=== PATIENT | female | born 1940 | race American Indian/Alaskan Native ===

== ENCOUNTER 2016-11-27 05:47 | Day surgery (SDC) | payer MEDICARE, OTHER ==
[2016-11-27] MEDS ORDERED: NACL 0.9% 1000 ML 1,000 ML IV SCH (06:00)
[2016-11-27] MEDS ORDERED: ANCEF/STERILE WATER 2 GM/20 ML 2 GM/20 ML SYRINGE IV NR (06:00)
[2016-11-27] MEDS ORDERED: NACL BACTERIOSTATIC INFILTRATI ONE (06:26)
[2016-11-27 07:08] LABS: Basophils % (Auto) 0.5 % (0.0-1.8); Eosinophils % (Auto) 2.1 % (0.0-4.3); Hematocrit 34.6 % (30.3-42.9); Hemoglobin 11.6 gm/dl (10.1-14.3); Mean Corpuscular HGB Conc 34 % (30-34); Mean Corpuscular Hemoglobin 34 pg (28-32); Mean Corpuscular Volume 100 fl (79-97); Platelet Count 144 K/mm3 (140-440); Red Blood Count 3.45 M/mm3 (3.65-5.03); Red Cell Distribution Width 14.5 % (13.2-15.2); White Blood Count 8.4 K/mm3 (4.5-11.0)
[2016-11-27] MEDS ORDERED: HEPARIN 10,000 UNITS/10 ML ONE (07:20)
[2016-11-27 07:21] LABS: BUN/Creatinine Ratio 6.29; Calcium 8.5 mg/dL (8.4-10.2); Chloride 94.6 mmol/L (98-107); Potassium 4.7 mmol/L (3.6-5.0)
[2016-11-27] MEDS ORDERED: NACL 0.9% 250ML 500 ML ONE (07:21)
[2016-11-27] MEDS ORDERED: XYLOCAINE 1% 20 mL ONE (07:22)
[2016-11-27] MEDS ORDERED: SODIUM BICARBONATE ONE (07:23)
[2016-11-27] MEDS ORDERED: THROMBIN (BOVINE) TP ONE ×2 (07:24→10:00)
[2016-11-27] MEDS ORDERED: GELFOAM TP ONE ×2 (07:24→10:00)
[2016-11-27] MEDS ORDERED: MARCAINE 0.5% INFILTRATI ONE (07:25)
--- NOTE | 2016-11-27 07:27 | Anesthesia Day of Surgery ---
Anesthesia Day of Surgery - Day of Surgery Patient Examined: Yes Patient H&P Reviewed: Yes Patient is NPO: Yes Beta Blockers: Yes
--- NOTE | 2016-11-27 07:27 | Anesthesia Consultation ---
Anesthesia Consult and Med Hx Date of service: 11/27/16 - Airway Anesthetic Teeth Evaluation: Good ROM Head & Neck: Adequate Mental/Hyoid Distance: Inadequate Mallampati Class: Class IV Intubation Access Assessment: Difficult - Pulmonary Exam CTA: Yes - Cardiac Exam Cardiac Exam: RRR - Pre-Operative Health Status ASA Pre-Surgery Classification: ASA4 Proposed Anesthetic Plan: General - Pulmonary Hx Smoking: No Hx Sleep Apnea: No - Cardiovascular System Hx Hypertension: Yes (x 19 yrs) Hx Heart Murmur: Yes - Central Nervous System Hx Psychiatric Problems: No - Gastrointestinal Hx Gastroesophageal Reflux Disease: Yes (MODERATE) - Endocrine Hx Renal Disease: Yes (m,w,f dialysis) Hx End Stage Renal Disease: Yes Hx Non-Insulin Dependent Diabetes: Yes (DIET CONTROLLED) - Hematic Hx Anemia: Yes - Other Systems Hx Cancer: No Hx Obesity: Yes
[2016-11-27] MEDS ORDERED: DIPRIVAN 10 MG/ML IV ONE (07:32)
[2016-11-27] MEDS ORDERED: SUBLIMAZE ONE (07:33)
[2016-11-27] MEDS ORDERED: MARCAINE-EPI 0.5%-1:200,000 INFILTRATI ONE ×2 (07:58→08:55)
[2016-11-27] MEDS ORDERED: RIFADIN ONE (08:24)
[2016-11-27] MEDS ORDERED: ZOFRAN IV PRN (08:32)
[2016-11-27] MEDS ORDERED: XYLOCAINE MPF 2% ONE (08:32)
[2016-11-27] MEDS ORDERED: NEO SYNEPHRINE ONE (08:45)
[2016-11-27] MEDS ORDERED: NACL 0.9% 100 ML ONE (08:56)
[2016-11-27] MEDS ORDERED: ePHEDrine SULFATE ONE (08:59)
[2016-11-27] MEDS ORDERED: HEPARIN 10,000 UNITS/10 ML IV ONE (09:12)
[2016-11-27] MEDS ORDERED: NACL 0.9% 250ML IV ONE ×2 (09:12→09:14)
[2016-11-27] MEDS ORDERED: NACL 0.9% IR ONE (09:13)
[2016-11-27] MEDS ORDERED: RIFADIN IV ONE (09:14)
[2016-11-27] MEDS ORDERED: ZOFRAN ONE (10:50)
[2016-11-27] MEDS: DILAUDID IV PRN ×2 (11:05→11:23)
--- NOTE | 2016-11-27 11:21 | Short Stay Summary ---
Short Stay Documentation - History H&P: obtained from office - Allergies and Medications Current Medications: Allergies iodine Allergy (Intermediate, Verified 11/26/16 07:42) Itching, Swelling REPORTS ITCHING AND SWELLING. TREATED WITH BENADRYL. ivp dye Adverse Reaction (Uncoded 11/26/16 07:42) Swelling, itching Home Medications Medication Instructions Recorded Confirmed Last Taken Type Lisinopril [Zestril TAB] 20 mg PO DAILY 12/09/12 11/26/16 11/27/16 05:00 History Metoprolol [Lopressor TAB] 50 mg PO BID 12/09/12 11/26/16 11/27/16 05:00 History Pravastatin (Nf) [Pravachol] 40 mg PO QHS 12/09/12 11/26/16 11/26/16 History Furosemide [Lasix TAB] 80 mg PO DAILY 05/05/14 11/26/16 11/26/16 History Cinacalcet [Sensipar] 30 mg PO QDAY 06/28/15 11/26/16 11/26/16 History Ferric Citrate (Nf) [Auryxia (Nf)] 210 mg PO TID 09/20/16 11/26/16 11/26/16 History Vitamin B Comp and C/FA/Zn Cit 0.8 mg PO DAILY 09/20/16 11/26/16 11/26/16 History [Dialyvite 800-Zinc 15 mg Tab] Aspirin [Adult Low Dose Aspirin EC] 81 mg PO DAILY 11/26/16 11/26/16 11/26/16 History Active Medications Hydromorphone HCl (Dilaudid) 0.25 mg IV Q10MIN PRN PRN Reason: Pain, Moderate (4-6) Stop: 11/27/16 12:00 Cefazolin Sodium (Ancef/Sterile Water 2 Gm/20 Ml) 2 gm in 20 mls @ 80 mls/hr IV PREOP NR PRN Reason: Protocol Stop: 11/27/16 23:59 Sodium Chloride (Nacl 0.9% 1000 Ml) 1,000 mls @ 42 mls/hr IV DIRECT HARI Last Admin: 11/27/16 06:45 Dose: 42 mls/hr - Brief post op/procedure progress note Date of procedure: 11/27/16 Pre-op diagnosis: failing arteriovenous fistula left upper extremity Post-op diagnosis: same Procedure: 1. Placement of new left upper extremity bridge graft using 7 mm bovine from existing fistula and flow to new anastomosis at the axillary vein 2. Excision of existing left upper extremity arteriovenous fistula Anesthesia: GETA, local Findings: Large pseudoaneurysm of the left upper extremity arterial venous fistula resected. Surgeon: DAYLIN WOODSON Estimated blood loss: other (approximately 250 mL) Pathology: list (pseudoaneurysm sac) Specimen disposition: to lab Condition: stable - Hospital course Hospital course: Benign - Disposition Condition at discharge: Good Disposition: DC-01 TO HOME OR SELFCARE - Discharge Diagnoses (1) Malfunction of arteriovenous dialysis fistula Status: Acute Qualifiers: Encounter type: initial encounter Qualified Code(s): T82.590A - Other mechanical complication of surgically created arteriovenous fistula, initial encounter Short Stay Discharge Plan Activity: advance as tolerated Diet: advance as tolerated Wound: keep clean and dry, per your surgeon's advice Follow up with: DAYLIN WOODSON MD [Staff Physician] - 14 Days
--- NOTE | 2016-11-27 11:35 | Operative Report ---
Operative Report Operative Report: Date of procedure: 11/27/2016 Pre-operative diagnosis: Failing arteriovenous fistula left upper extremity Post-operative diagnosis: Same Procedure name(s): 1. Creation of left upper extremity bridge graft using 7 mm bovine graft from existing arteriovenous fistula to new anastomosis and the axillary vein 2. Excision of existing left upper extremity arterial venous fistula Surgeon: Dewayne Lao MD Procedures Tech: No one Anesthesia: Gen. with local supplementation using half percent Marcaine plain with epinephrine EBL: Approximately 250 mL Operative indication: Patient is a 76-year-old woman with a long-standing fistula involving the cephalic vein in the left upper extremity. This fistula has become markedly dilated with pseudoaneurysms over the cannulation site and the patient is expressing pain during dialysis. In addition she is noted to have occlusion of the cephalic vein arch with multiple collaterals reconstituting the outflow of the fistula at the level of the shoulder. She presents now for placement of a new arteriovenous graft and resection of the pseudoaneurysms of the existing fistula. Findings: Excellent thrill in the AV graft at the end of the case. No immediate complications noted. Procedure: The patient was placed on the table in the supine position. The area over the left arm was prepped with a chlor prep solution and draped in usual sterile fashion. Half percent Marcaine with lidocaine was used to anesthetize all incisions before they were made. An incision was made in the axilla. Dissection was carried out to identify the axillary vein. This appeared to be of good caliber and was widely patent. It was surrounded with Vesseloops proximally and distally. A transverse incision was made over the existing fistula just above the antecubital fossa and below the area of the pseudoaneurysm formation. Dissection was carried out to identify the fistula which was surrounded with a vessel loop at that location. A third incision was made in the upper portion of the arm above the pseudoaneurysms but near the outflow of the arterial venous fistula. The vein at that point was surrounded with a vessel loop. Based on existing anatomy, I decided that tunneling the graft more medially would be the best pathway for the new arteriovenous graft. A tunnel was then made using a Clarisse-Wick tunneler between the 2 incisions just above the elbow and at the axilla. A 7 mm bovine graft which had been soaked in rifampin was pulled through the tunnel. The graft was dilated with heparinized saline to remove any twists or kinks and make sure that the graft was easily palpable below the level of the skin. The axillary vein was occluded with vessel loops and then an end-to-side anastomosis was done between the proximal end of the bovine graft and the axillary vein using 60 proline. The sutures were not tied at this point. On the arterial side, the lower end of the arteriovenous fistula was controlled with a DeBakey clamp. A spatulated end to end anastomosis was made between the bovine graft and the arterial venous fistula using 50 proline. The graft was flushed and vented to remove any air or debris. Flow was started into the axilla vein with the development of an immediate and excellent thrill over the body of the graft. There were some minor suture line bleeding noted at the venous anastomosis which was controlled with a separate 60 stitch. Meticulous hemostasis was obtained. An elliptical incision was then continued from the upper arm incision where the vein outflow was controlled down toward the antecubital fossa and Compazine all of the previous cannulation sites where the skin was excoriated. Dissection was then carried out to the soft tissue to extirpate the arteriovenous fistula and all the thrombus that was contained in it. Meticulous hemostasis is obtained. Closure was done with multiple layers of interrupted 2-0 Vicryl and then subcutaneous 3-0 Vicryl. The skin was closed with 4-0 subcuticular PDS. Attention was turned to the antecubital incision. This was closed with 3-0 Vicryl and 4-0 subcuticular PDS. The axillary incision was closed with 3-0 Vicryl and 4-0 subcuticular PDS. Sponge, needle, and instrument counts were reported as correct. The patient tolerated the procedure well. She had an excellent thrill in the arteriovenous graft at the end of the procedure. No immediate complications were noted. She was taken from the operating room to the recovery room in stable condition.
[2016-11-27] MEDS ORDERED: NORCO 5/325 PO PRN (12:11)
--- NOTE | 2016-11-27 12:31 | Post Anesthesia Evaluation ---
- Post Anesthesia Evaluation Patient Participated: Yes Airway Patent: Yes Stable Respiratory Function: Yes Nausea/Vomiting: No Temp > 96.8F: Yes Pain Manageable: Yes Adequeate Hydration: Yes Anesthesia Complications: No
[2016-11-27 15:05] VITALS: BP 95/56
== END 2016-11-27 13:50 | disposition home or self-care (01) ==
LOC: OR 05:47
PROVIDERS: ATTEND Surgery Vascular Surgery
DX: T82.590A Other mechanical complication of surgically created arteriovenous fistula, initial encounter (principal); Y83.2 Surgical operation with anastomosis, bypass or graft as the cause of abnormal reaction of the patient, or of later complication, without mention of misadventure at the time of the procedure; I10 Essential (primary) hypertension; K21.9 Gastro-esophageal reflux disease without esophagitis; I12.0 Hypertensive chronic kidney disease with stage 5 chronic kidney disease or end stage renal disease; E11.22 Type 2 diabetes mellitus with diabetic chronic kidney disease; E66.9 Obesity, unspecified; H40.9 Unspecified glaucoma; N18.6 End stage renal disease; Z90.710 Acquired absence of both cervix and uterus; Z82.49 Family history of ischemic heart disease and other diseases of the circulatory system; Z83.3 Family history of diabetes mellitus; Z91.048 Other nonmedicinal substance allergy status; Z99.2 Dependence on renal dialysis; Z79.82 Long term (current) use of aspirin
CPT/HCPCS: 36415; 36832; 80048; 82962; 85025; 88304; A4649; C1768; J0690; J1170; J1644; J2370; J2405; J2704; J3010; J3490; J7030; J7050

== ENCOUNTER 2017-04-01 08:07 | Outpatient (CLI) | payer MEDICARE, OTHER ==
--- NOTE | 2017-04-01 10:05 | Mammography Report ---
BILATERAL MAMMOGRAM: FINDINGS: The breast tissue is heterogeneously dense, which could obscure detection of small masses (approximately 50%-75% glandular). No mass, distortion, suspicious calcification, or skin change is seen. No significant change when compared to exams dating back to 2015. CAD was utilized. IMPRESSION: Negative mammogram. There is no mammographic evidence of malignancy. RECOMMENDATION: Follow-up per ACS guidelines. BI-RADS CATEGORY: 1 = Negative ACR BI-RADS MAMMOGRAPHIC CODES: 0 = Needs additional imaging evaluation; 1 = Negative; 2 = Benign; 3 = Probably benign; 4 = Suspicious; 5 = Malignant; 6 = Known biopsy-proven malignancy COMMENT: 1. Dense breast tissue, i.e., adenosis, fibrocystic changes, etc., may obscure an underlying neoplasm. 2. Approximately 10% of cancers are not detected with mammography. 3. A negative mammography report should not delay biopsy if a clinically suspicious mass is present. COMMENT: Patient follow-up letters are generated in [employer].
== END 2017-04-01 08:08 | disposition home or self-care (01) ==
LOC: SPVWC 08:07
PROVIDERS: ATTEND Family Medicine Adult Medicine
DX: Z12.31 Encounter for screening mammogram for malignant neoplasm of breast (principal); I13.2 Hypertensive heart and chronic kidney disease with heart failure and with stage 5 chronic kidney disease, or end stage renal disease; I50.9 Heart failure, unspecified; N18.6 End stage renal disease; E11.22 Type 2 diabetes mellitus with diabetic chronic kidney disease; E78.00 Pure hypercholesterolemia, unspecified
CPT/HCPCS: 77067; G0202

== ENCOUNTER 2019-06-03 09:36 | Outpatient (CLI) | payer MEDICARE, OTHER ==
--- NOTE | 2019-06-03 12:59 | Mammography Report ---
DIGITAL SCREENING MAMMOGRAM WITH CAD, 06/03/2019 INDICATION: Routine screening mammography. TECHNIQUE: Digital bilateral 2D mammography was obtained in the craniocaudal and mediolateral obliq ue projections. This examination was interpreted with the benefit of Computer-Aided Detection analysi s. COMPARISON: 04/06/2018 FINDINGS: Breast Density: The breasts are heterogeneously dense, which may obscure small masses. There is no evidence of dominant mass, suspicious calcifications or architectural distortion in eithe r breast. Bilateral benign calcifications which are mostly arterial. IMPRESSION: No mammographic evidence of malignancy. Follow up recommendation: Routine yearly BI-RADS Category 2: Benign. A "normal" or negative report should not discourage follow up or biopsy of a clinically significant f inding. A written summary of these findings will be mailed to the patient. The patient will be entered into a mammography reporting system which will generate a reminder letter for the patient's next appointmen t at the appropriate interval. The [employer] recommends yearly mammograms starting at age 40 and continuing as l gary as a woman is in good health. Breast MRI is recommended for women with an approximate 20-25% or greater lifetime risk of breast cancer, including women with a strong family history of breast or ova ghazala cancer or who have been treated for Hodgkin's disease. Signer Name: Sivakumar Martin MD Signed: 06/03/2019 12:55 PM Workstation Name: [id number]
== END 2019-06-03 09:37 | disposition home or self-care (01) ==
LOC: SPVWC 09:36
PROVIDERS: ATTEND Family Medicine Adult Medicine
DX: Z12.31 Encounter for screening mammogram for malignant neoplasm of breast (principal)
CPT/HCPCS: 77067